=== PATIENT | female | born 1970 | race Hispanic/Latino ===

== ENCOUNTER 2016-12-31 19:14 | Emergency (ER) | payer MEDICARE, MEDICAID ==
[2016-12-31 19:30] VITALS: BP 130/86
--- NOTE | 2016-12-31 21:01 | Emergency Department Report ---
ED ENT HPI - General Chief complaint: Sore Throat Stated complaint: SORE THROAT/FEVER Time Seen by Provider: 12/31/16 20:03 Source: patient Mode of arrival: Ambulatory Limitations: No Limitations - History of Present Illness Initial comments: 46 year old female presents to ED with sore throat and persistent productive cough x3 days. patient states she thinks she had a fever at home but never took her temperature. patient is afebrile during ED visit. patient is neurologically intact and in no acute distress. MD complaint: sore throat, difficulty swallowing -: Gradual Location: throat Severity: mild Consistency: constant Improves with: none Worsens with: none Associated Symptoms: fever, cough, sore throat. denies: toothache - Related Data Home Medications Medication Instructions Recorded Confirmed Last Taken Buspirone HCl [busPIRone] 30 mg PO BID 12/31/16 12/31/16 12/31/16 buPROPion SR [Wellbutrin Sr] 150 mg PO QAM 12/31/16 12/31/16 12/31/16 hydrOXYzine PAMOATE [Vistaril] 50 mg PO Q6HR PRN MDD 200mg 12/31/16 12/31/1602/11 lamoTRIgine XR [LaMICtal Xr] 50 mg PO 4XD 12/31/16 12/31/16 12/31/16 Allergies Allergy/AdvReac Type Severity Reaction Status Date / Time amoxicillin Allergy Rash Verified 12/31/16 19:25 Penicillins Allergy Rash Verified 12/31/16 19:25 ED Dental HPI - General Chief complaint: Sore Throat Stated complaint: SORE THROAT/FEVER Time Seen by Provider: 12/31/16 20:03 Source: patient Mode of arrival: Ambulatory Limitations: No Limitations - Related Data Home Medications Medication Instructions Recorded Confirmed Last Taken Buspirone HCl [busPIRone] 30 mg PO BID 12/31/16 12/31/16 12/31/16 buPROPion SR [Wellbutrin Sr] 150 mg PO QAM 12/31/16 12/31/16 12/31/16 hydrOXYzine PAMOATE [Vistaril] 50 mg PO Q6HR PRN MDD 200mg 12/31/16 12/31/1602/11 lamoTRIgine XR [LaMICtal Xr] 50 mg PO 4XD 12/31/16 12/31/16 12/31/16 Allergies Allergy/AdvReac Type Severity Reaction Status Date / Time amoxicillin Allergy Rash Verified 12/31/16 19:25 Penicillins Allergy Rash Verified 12/31/16 19:25 ED Review of Systems ROS: Stated complaint: SORE THROAT/FEVER Other details as noted in HPI Constitutional: denies: chills, fever Eyes: denies: eye pain, eye discharge, vision change ENT: throat pain, congestion. denies: ear pain, dental pain Respiratory: cough. denies: shortness of breath, wheezing Cardiovascular: denies: chest pain, palpitations Endocrine: no symptoms reported Gastrointestinal: denies: abdominal pain, nausea, diarrhea Genitourinary: denies: urgency, dysuria, discharge Musculoskeletal: denies: back pain, joint swelling, arthralgia Skin: denies: rash, lesions Neurological: denies: headache, weakness, paresthesias Psychiatric: denies: anxiety, depression Hematological/Lymphatic: denies: easy bleeding, easy bruising ED Past Medical Hx - Past Medical History Previous Medical History?: Yes Hx Psychiatric Treatment: Yes (bipolar) - Social History Smoking Status: Unknown if ever smoked - Medications Home Medications: Home Medications Medication Instructions Recorded Confirmed Last Taken Type Buspirone HCl [busPIRone] 30 mg PO BID 12/31/16 12/31/16 12/31/16 History buPROPion SR [Wellbutrin Sr] 150 mg PO QAM 12/31/16 12/31/16 12/31/16 History hydrOXYzine PAMOATE [Vistaril] 50 mg PO Q6HR PRN MDD 200mg 12/31/16 12/31/1602/11 History lamoTRIgine XR [LaMICtal Xr] 50 mg PO 4XD 12/31/16 12/31/16 12/31/16 History ED Physical Exam - General Limitations: No Limitations General appearance: alert, in no apparent distress - Head Head exam: Present: atraumatic, normocephalic - Eye Eye exam: Present: normal appearance - ENT ENT exam: Present: normal exam, mucous membranes moist, TM's normal bilaterally - Neck Neck exam: Present: normal inspection - Respiratory Respiratory exam: Present: normal lung sounds bilaterally. Absent: respiratory distress, wheezes, decreased breath sounds - Cardiovascular Cardiovascular Exam: Present: regular rate, normal rhythm. Absent: systolic murmur, diastolic murmur, rubs, gallop - GI/Abdominal GI/Abdominal exam: Present: soft, normal bowel sounds. Absent: distended, tenderness, guarding - Extremities Exam Extremities exam: Present: normal inspection, full ROM - Back Exam Back exam: Present: normal inspection, full ROM - Neurological Exam Neurological exam: Present: alert, oriented X3, normal gait - Psychiatric Psychiatric exam: Present: normal affect, normal mood - Skin Skin exam: Present: warm, dry, intact, normal color. Absent: rash ED Course Vital Signs 12/31/16 19:28 Temperature 98.5 F Pulse Rate 104 H Respiratory 20 Rate Blood Pressure 130/86 O2 Sat by Pulse 98 Oximetry ED Medical Decision Making - Lab Data Negative strep test. culture pending. - Medical Decision Making 46 year old female presents to ED with sore throat and cough. patient had negative strep test. I have ordered a urine test for for medication purposes and a Chest xray for persistent cough but upon re-entering room for re- examination, patient has left AMA. patient was neurologically intact and completely capable of decision making. patient was aware that chest xray and urine had been ordered prior to leaving AMA. Critical care attestation.: If time is entered above; I have spent that time in minutes in the direct care of this critically ill patient, excluding procedure time. ED Disposition Clinical Impression: Pharyngitis Qualifiers: Pharyngitis/tonsillitis etiology: unspecified etiology Qualified Code(s): J02.9 - Acute pharyngitis, unspecified Disposition: LEFT AGAINST MEDICAL ADVICE Is pt being admited?: No Does the pt Need Aspirin: No Condition: Undetermined
== END 2016-12-31 20:50 | disposition left against medical advice (07) ==
LOC: ED 19:14
DX: J02.9 Acute pharyngitis, unspecified (principal); Z88.1 Allergy status to other antibiotic agents; Z88.0 Allergy status to penicillin; F31.9 Bipolar disorder, unspecified
CPT/HCPCS: 87116; 87430; 99282